=== PATIENT | male | born 1990 | race Asian ===

== ENCOUNTER 2023-09-15 18:17 | Emergency (ER) | payer SELFPAY ==
[~2023-09-15] VITALS: Ht 180.3 cm; Wt 111.0 kg
[2023-09-15] MEDS ORDERED: TETRACAINE 0.5% OPHTH DROPS 4ML RIGHTEYE ONE (18:30)
[2023-09-15] MEDS ORDERED: FLUORESCEIN SODIUM 1MG/STRIP RIGHTEYE ONE (18:30)
[2023-09-15 18:35] VITALS: O2SAT 97
[2023-09-15] MEDS: TETRACAINE 0.5% OPHTH DROPS 4ML RIGHTEYE NR (22:00)
[2023-09-15] MEDS: FLUORESCEIN SODIUM 1MG/STRIP RIGHTEYE NR (22:00)
[2023-09-15] MEDS ORDERED: ERYT1OIN6 LEFTEYE (22:30)
[2023-09-15 23:00] VITALS: BP 130/77; PULSE 72; RESP 20; TEMP 98.3
== END 2023-09-15 23:02 | disposition home or self-care (01) ==
LOC: ER 18:17
DX: S05.02XA Injury of conjunctiva and corneal abrasion without foreign body, left eye, initial encounter (principal); X58.XXXA Exposure to other specified factors, initial encounter; Y93.89 Activity, other specified; Y92.89 Other specified places as the place of occurrence of the external cause; Y99.8 Other external cause status
CPT/HCPCS: 99283